=== PATIENT | female | born 1980 ===

== ENCOUNTER 2023-05-17 12:15 | Outpatient (CLI) | payer OTHER, SELFPAY | END 2023-05-17 12:16 | disposition home or self-care (01) | PROVIDERS: Visit Provider Obstetrics & Gynecology | DX: Z13.29 Encounter for screening for other suspected endocrine disorder (principal); Z13.220 Encounter for screening for lipoid disorders | CPT/HCPCS: 80061; 84443 ==

== ENCOUNTER 2023-12-04 08:52 | Outpatient (CLI) | payer OTHER, SELFPAY ==
--- NOTE | 2023-12-04 10:08 | W.ANESCHARGE ---
Anesthesia Charges Start Date/Time Anesthesia Start Date: 12/04/23 Anesthesia Start Time: 09:56 Stop Date/Time Anesthesia Stop Date: 12/04/23 Anesthesia Stop Time: 10:22
--- NOTE | 2023-12-04 10:25 | W.ANESCHARGE ---
Anesthesia Charges Start Date/Time Anesthesia Start Date: 12/04/23 Anesthesia Start Time: 09:56 Stop Date/Time Anesthesia Stop Date: 12/04/23 Anesthesia Stop Time: 10:22
== END 2023-12-04 08:53 | disposition home or self-care (01) ==
LOC: OP CLINIC 08:53
PROVIDERS: Visit Provider Surgery
DX: Z12.11 Encounter for screening for malignant neoplasm of colon (principal)
CPT/HCPCS: 00811; 00812; 45378; J2704

== ENCOUNTER 2024-09-18 08:29 | Outpatient (CLI) | payer OTHER, SELFPAY | END 2024-09-18 08:30 | disposition home or self-care (01) | LOC: FRMREF 08:30 | PROVIDERS: Visit Provider Obstetrics & Gynecology | DX: Z13.6 Encounter for screening for cardiovascular disorders (principal) | CPT/HCPCS: 80061 ==

== ENCOUNTER 2024-12-21 16:26 | Emergency (ER) | payer OTHER, SELFPAY ==
--- OUTSIDE RECORDS SUMMARY | 2024-12-21 16:30 | XMS_ITS | Encounter Summary ---
Author Organization [facility] Address [address] [place] [address] Care Team Providers Care Pattern Developer Name Role Phone Stacie Villareal MD Primary Care Provider Shanon Gomez APRN MANAGER SPRING Unavailable + Stevan Horn PA-C Unavailable + Stevan Horn PA-C Unavailable + Shanon Gomez APRN MANAGER SPRING Unavailable + Stevan Horn PA-C Unavailable + Mariajose Jenkins DIMENSIONAL ENGINEER MANAGER SPRING Unavailable [phone] Shanon Gomez DIMENSIONAL ENGINEER MANAGER SPRING Unavailable +[phone] Encounter Details Date Type Department Care Team (Late st Contact Info) Description 01/28/2016 [facility] Medical Advice [place] [address] [place] [address] Sabina Seymour MA Social History Tobacco Use Types Packs/Day Years Used Date Smoking Tobacco: Never Alcohol Use Standard Drinks/Week Comments Yes 0 (1 standard drink = 0.6 oz pur e alcohol) Occasionally Comments No Sex and Gender Information Value Date Recorded Sex Assigned at Not on file Legal Sex Female 4:02 AM MONEY LAUNDERING INVESTIGATOR Gender Identity Not on file Sexual Orientation Not on file 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 Not on file Not on file Not on file Not on file Not on file Not on file documented as of this encounter Plan of Treatment Not on file documented as of this encounter Visit Diagnoses Not on filedocumented in this encounter Care Teams Pattern Developer Relationship Specialty Start Date End Date Stacie Villareal MD PCP - General Family Practice 12/28/10 09/03/24 Shanon Gomez APRN MANAGER SPRING [address] [place] [address] PCP - Assigned PCP 07/30/17 02/17/18 Stevan Horn PA-C [address] [place] [address] PCP - Assigned PCP 02/18/18 05/01/18 Stevan Horn PA-C [address] [place] [address] Assigned PCP 02/18/18 05/12/18 Shanon Gomez APRN MANAGER SPRING [address] [place] [address] Assigned PCP 05/13/18 12/15/18 Stevan Horn PA-C [address] [place] [address] Assigned PCP 12/16/18 10/10/20 Mariajose Jenkins APRN MANAGER SPRING [address] [place] [address] Assigned OBGYN Provider 06/07/2012/10 Shanon Gomez APRN MANAGER [place] [address] [place] [address] Assigned PCP 10/11/20 11/19/23 documented as of this encounter
--- OUTSIDE RECORDS SUMMARY | 2024-12-21 16:30 | XMS_ITS | Encounter Summary ---
Author Organization [facility] Address [address] [place] [address] Care Team Providers Care Washroom Attendant Name Role Phone Stacie Villareal MD Primary Care Provider Shanon Gomez APRN FRONT MAKER Unavailable + [phone] Stevan Horn PA-C Unavailable + Stevan Horn PA-C Unavailable + Shanon Gomez DISTRIBUTOR OF DIRECTORIES FRONT MAKER Unavailable + Benjie Hornis PA-C Unavailable + Mariajose Jenkins DISTRIBUTOR OF DIRECTORIES FRONT MAKER Unavailable [phone] Shanon Gomez DISTRIBUTOR OF DIRECTORIES FRONT MAKER Unavailable + [phone] Encounter Details Date Type Department Care Team (Late st Contact Info) Description 06/14/2013 [facility] Medical Advice [address] [address] Dar Devi MD NO INFO AVAILABLE 09/20/22 Social History Tobacco Use Types Packs/Day Years Used Date Smoking Tobacco: Never Alcohol Use Standard Drinks/Week Comments Yes 0 (1 standard drink = 0.6 oz pur e alcohol) couple drinks a week Comments Yes Sex and Gender Information Value Date Recorded Sex Assigned at Not on file Legal Sex Female 4:02 AM DIRECTOR COLLEGE Gender Identity Not on file Sexual Orientation Not on file 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 Jade Brown RN * Telephone Encounter - Jade Brown RN - 06/17/2013 7:28 PM CDT Left message to call back at cell number. Jade Brown RN documented in this encounter Plan of Treatment Not on file documented as of this encounter Visit Diagnoses Not on filedocumented in this encounter Care Teams Washroom Attendant Relationship Specialty Start Date End Date Stacie Villareal MD PCP - General Family Practice 12/28/10 09/03/24 Shanon Gomez APRN FRONT [place]KER [address] [place] [address] PCP - Assigned PCP 07/30/17 02/17/18 Stevan Horn PA-C [address] [place] [address] PCP - Assigned PCP 02/18/18 05/01/18 Stevan Horn PA-C [address] [place] [address] Assigned PCP 02/18/18 05/12/18 Shanon Gomez APRN FRONT MAKER [address] [place] [address] Assigned PCP 05/13/18 12/15/18 Stevan Horn PA-C [address] [place] [address] Assigned PCP 12/16/18 10/10/20 Mariajose Jenkins APRN FRONT MAKER [address] [facility] [place] [address] Assigned OBGYN Provider 06/07/2012/10 Shanon Gomez APRN FRONT MAKER [address] [place] [address] Assigned PCP 10/11/20 11/19/23 documented as of this encounter
--- OUTSIDE RECORDS SUMMARY | 2024-12-21 16:30 | XMS_ITS | Encounter Summary ---
Author Organization [facility] Address [address] [place] [address] Care Team Providers Care Surveillance Inspector Name Role Phone Dar Devi MD Primary Care Provider Stacie Gallagher MD Primary Care Provider + Shanon Gomez HYDRO ELECTRIC 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 FLIGHT READINESS TECHNICIAN Unavailable + Stevan Horn PA-C Unavailable + Stevan Horn PA-C Unavailable + Shanon Gomez HYDRO ELECTRIC 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 FLIGHT READINESS TECHNICIAN Unavailable + Stevan Horn PA-C Unavailable + Mariajose Jenkins HYDRO ELECTRIC 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 FLIGHT READINESS TECHNICIAN Unavailable [phone] Shanon Gomez HYDRO ELECTRIC 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 FLIGHT READINESS TECHNICIAN Unavailable + Encounter Details Date Type Department Care Team (Late st Contact Info) Description 03/28/2007 [facility] Medical Advice Initial Department Jammie Scott Social History Tobacco Use Types Packs/Day Years Used Date Smoking Tobacco: Never Alcohol Use Standard Drinks/Week Comments Yes 0 (1 standard drink = 0.6 oz pure alcohol) 3-5 per week while not Comments No Sex and Gender Information Value Date Recorded Sex Assigned at Not on file Legal Sex Female 4:02 AM POWER 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 Gender Identity Not on file Sexual Orientation Not on file 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 Not on file Not on file documented as of this encounter Plan of Treatment Not on file documented as of this encounter Visit Diagnoses Not on filedocumented in this encounter Care Teams Surveillance Inspector Relationship Specialty Start Date End Date Dar Devi MD PCP - General 04/10/03 12/27/10 Stacie Villareal MD PCP - General Family Practice 12/28/10 09/03/24 Shanon Gomez APRN FLIGHT READINESS TECHNICIAN [address] [place] [address] PCP - Assigned PCP 07/30/17 02/17/18 Stevan Horn PA-C [address] [place] [address] PCP - Assigned PCP 02/18/18 05/01/18 Stevan Horn PA-C [address] [place] [address] Assigned PCP 02/18/18 05/12/18 Shanon Gomez APRN FLIGHT READINESS TECHNICIAN [address] [place] [address] Assigned PCP 05/13/18 12/15/18 Stevan Horn PA-C [address] [place] [address] Assigned PCP 12/16/18 10/10/20 Mariajose Jenkins APRN FLIGHT READINESS TECHNICIAN [address] [place] [address] Assigned OBGYN Provider 06/07/2012/10 Shanon Gomez APRN FLIGHT READINESS TECHNICIAN [address] [place] [address] Assigned PCP 10/11/20 11/19/23 documented as of this encounter
--- OUTSIDE RECORDS SUMMARY | 2024-12-21 16:30 | XMS_ITS | Encounter Summary ---
Author Organization [facility] Address [address] [place] [address] Care Team Providers Care Transitional Care Liaison Name Role Phone Dar Devi MD Primary Care Provider Stacie Gallagher MD Primary Care Provider Shanon Gomez MANAGER ADMINISTRATIVE SERVICES MANAGER THERAPY Unavailable + Stevan Horn PA-C Unavailable + Stevan Horn PA-C Unavailable + Shanon Gomez MANAGER ADMINISTRATIVE SERVICES MANAGER THERAPY Unavailable + Stevan Horn PA-C Unavailable + Mariajose Jenkins MANAGER ADMINISTRATIVE SERVICES MANAGER THERAPY Unavailable [phone] Shanon Gomez MANAGER ADMINISTRATIVE SERVICES MANAGER THERAPY Unavailable +[phone] Encounter Details Date Type Department Care Team (Late st Contact Info) Description 04/19/2008 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 on file Not on file Not on file Not on file Not on file Not on file documented as of this encounter Plan of Treatment Not on file documented as of this encounter Visit Diagnoses Diagnosis OB DELIVERY RECORD- Primary documented in this encounter Care Teams Transitional Care Liaison Relationship Specialty Start Date End Date Dar Devi MD PCP - General 04/10/03 12/27/10 Stacie Villareal MD PCP - General Family Practice 12/28/10 09/03/24 Shanon Gomez APRN MANAGER THERAPY [address] [place], [place] [id number] PCP - Assigned PCP 07/30/17 02/17/18 Stevan Horn PA-C [address] [place], [place] [id number] PCP - Assigned PCP 02/18/18 05/01/18 Stevan Horn PA-C [address] [place], [place] [address] Assigned PCP 02/18/18 05/12/18 Shanon Gomez APRN MANAGER THERAPY [address] [place] [address] Assigned PCP 05/13/18 12/15/18 Stevan Horn PA-C [address] [place] [address] Assigned PCP 12/16/18 10/10/20 Mariajose Jenkins APRN MANAGER THERAPY [address] [place] [address] Assigned OBGYN Provider 06/07/2012/10 Shanon Gomez APRN MANAGER [place]APY [address] [place] [address] Assigned PCP 10/11/20 11/19/23 documented as of this encounter
--- OUTSIDE RECORDS SUMMARY | 2024-12-21 16:30 | XMS_ITS | Encounter Summary ---
Author Organization [facility] Address [address] [place] [address] Care Team Providers Care Water Purifier Name Role Phone Dar eDvi MD Primary Care Provider Stacie Gallagher MD Primary Care Provider Shanon Gomez HOOP MAKER HELPER MACHINE FIELD LABORATORY OPERATOR Unavailable + Stevan Horn PA-C Unavailable + Stevan Horn PA-C Unavailable + Shanon Gomez HOOP MAKER HELPER MACHINE FIELD LABORATORY OPERATOR Unavailable + Stevan Horn PA-C Unavailable + Mariajose Jenkins HOOP MAKER HELPER MACHINE FIELD LABORATORY OPERATOR Unavailable [phone] Shanon Gomez HOOP MAKER HELPER MACHINE FIELD LABORATORY OPERATOR Unavailable +[phone] Encounter Details Date Type Department Care Team (Late st Contact Info) Description 01/14/2009 [facility] [address] [address] Dar Devi MD NO INFO AVAILABLE 09/20/22 Hypothyroidism (Primary Dx); Contraception Social History Tobacco Use Types Packs/Day Years Used Date Smoking Tobacco: Never Alcohol Use Standard Drinks/Week Comments No 0 (1 standard drink = 0.6 oz pur e alcohol) none since Comments No Sex and Gender Information Value Date Recorded Sex Assigned at Not on file Legal Sex Female 4:02 AM LAN ENGINEER Gender Identity Not on file Sexual Orientation Not on file 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 Steve Avina RN ENGINEER documented in this encounter Plan of Treatment Not on file documented as of this encounter Visit Diagnoses Diagnosis Hypothyroidism- Primary Unspecified hypothyroidism Contraception Unspecified contraceptive management documented in this encounter Care Teams Water Purifier Relationship Specialty Start Date End Date Dar Devi MD PCP - General 04/10/03 12/27/10 Stacie Villareal MD PCP - General Family Practice 12/28/10 09/03/24 Shanon Gomez APRN FIELD LABORATORY OPERATOR [address] [place] [id number] PCP - Assigned PCP 07/30/17 02/17/18 Stevan Horn PA-C [address] [place] [address] PCP - Assigned PCP 02/18/18 05/01/18 Stevan Horn PA-C [address] [place] [address] Assigned PCP 02/18/18 05/12/18 Shanon Gomez APRN FIELD LABORATORY OPERATOR [address] [place] [address] Assigned PCP 05/13/18 12/15/18 Stevan Horn PA-C [address] [place] [address] Assigned PCP 12/16/18 10/10/20 Mariajose Jenkins HOOP MAKER HELPER MACHINE FIELD LABORATORY OPERATOR [address] [place] [address] Assigned OBGYN Provider 06/07/2012/10 Shanon Gomez APRN FIELD LABORATORY OPERATOR [address] [place] [address] Assigned PCP 10/11/20 11/19/23 documented as of this encounter
--- OUTSIDE RECORDS SUMMARY | 2024-12-21 16:30 | XMS_ITS | Clinical Summary ---
[facility] Organization [facility] Address [address] [place] [address] Care Team Providers Care Baseball Sewer Hand Name Role Phone Found, No Pcp MD Primary Care Provider Unavailab le Source Comments You are receiving this document as you are listed as the primary care provider,follow-up provider, or the patient has been referred to you for consultation.This is in compliance with the Medicare and[facility] EHR Incentive Program,which states Providers who transition their patient to another setting of careor provider of care or refers their patient to another provider of care shouldprovide summary care record for each transition of care or referral. Formerly [facility] Allergies No known active allergies Medications desogestrel-eth inyl estradiol (ORTHO-CEPT, 28,) 0.15-30 MG-MCG tablet Take 1 tablet by mouth daily (every 24 hours). 84 3 04/15/2003 Active estradiol (VIVELLEDOT) 0.1 MG/24HR biweekly patch Apply 1 Patch to skin two times a week. 02/02/2024 Active progesterone (PROMETRIUM) 200 MG capsule Take 1 Capsule (200 mg) by mouth daily at bedtime. 02/08/2024 Active Social History Tobacco Use Types Packs/Day Years Used Date Smoking Tobacco: Never Smokeless Tobacco: Never Tobacco Cessation:Counseling Given: Not Answered Comments No Sex and Gender Information Value Date Recorded Sex Assigned at Not on file Legal Sex Female 8:21 PM CDT Gender Identity Not on file Sexual Orientation Not on file Last Filed Vital Signs Vital Sign Reading Time Taken Comments Blood Pressure 131/73 03/31/2024 3:51 PM TRUSS PULLER HELPER Pulse 74 03/31/2024 3:51 PM TRUSS PULLER HELPER Temperature 37.6 C (99.6 F) 03/31/2024 3:51 PM TRUSS PULLER HELPER Respiratory Rate 18 03/31/2024 3:51 PM TRUSS PULLER HELPER Oxygen Saturation 99% 03/31/2024 3:51 PM TRUSS PULLER HELPER Inhaled Oxygen Concentration - - Weight - - Height - - Body Mass Index - - Plan of Treatment Health Maintenance Due Date Last Done Comments Cervical Cancer Screening Due 1978 Colon Cancer Screening Plan Due 1978 Hep C Screening (Preventive Services) 1978 Mammogram 1978 HIV Screening (Preventive Services) 1994 Adult Preventive Visit 01/02/1996 HepB Vaccine (1) 1997 Cholesterol 2023 DTaP/Tdap/Td Vaccine (2 - Tdap) 07/05/2023 07/04/2013 COVID-19 Vaccine (2 - season) 2024 05/04/2020 Influenza Vaccine (#1) 2024 2, 11/13/2018, 12/10/2016, Additional history exists Zoster/Shingles Vaccine (1 of 2) 01/02/2028 HepA Vaccine Aged Out No longer eligi ble based on patient's age to complete this topic Hib Vaccine Aged Out No longer eligi ble based on patient's age to complete this topic IPV (Polio) Vaccine Aged Out No longe r eligible based on patient's age to complete this topic MCV4 Vaccine Aged Out No longer eligi ble based on patient's age to complete this topic Meningococcal B Vaccine Aged Out No l onger eligible based on patient's age to complete this topic Pneumococcal Vaccine Aged Out No long er eligible based on patient's age to complete this topic Insurance SELF INSURED SELF INSURED Care Teams Baseball Sewer Hand Relationship Specialty Start Date End Date Found, No Pcp, [address] [place] [address] PCP - General 03/31/24
--- OUTSIDE RECORDS SUMMARY | 2024-12-21 16:30 | XMS_ITS | Encounter Summary ---
Author Organization [facility] Address [address] [place] [address] Care Team Providers Care Physical Therapy Assistant Instructor Name Role Phone Stacie Villareal MD Primary Care Provider Shanon Gomez APRN LAUNCH STEWARD Unavailable + Stevan Horn PA-C Unavailable + Stevan Horn PA-C Unavailable + Shanon Gomez APRN LAUNCH STEWARD Unavailable + Stevan Horn PA-C Unavailable + Mariajose Jenkins PAPER CORE MACHINE OPERATOR LAUNCH STEWARD Unavailable [phone] Shanon Gomez PAPER CORE MACHINE OPERATOR LAUNCH STEWARD Unavailable +[phone] Encounter Details Date Type Department Care Team (Late st Contact Info) Description 04/02/2012 [facility] [address], [address] [place] [phone] [facility] Social History Tobacco Use Types Packs/Day Years Used Date Smoking Tobacco: Never Alcohol Use Standard Drinks/Week Comments Yes 0 (1 standard drink = 0.6 oz pur e alcohol) couple drinks a week Comments No Sex and Gender Information Value Date Recorded Sex Assigned at Not on file Legal Sex Female 4:02 AM ROOM DESIGNER Gender Identity Not on file Sexual Orientation [...] on filedocumented in this encounter Care Teams Physical Therapy Assistant Instructor Relationship Specialty Start Date End Date Stacie Villareal MD PCP - General Family Practice 12/28/10 09/03/24 hSanon Gomez APRN LAUNCH STEWARD [address] [place] [address] PCP - Assigned PCP 07/30/17 02/17/18 Stevan Horn PA-C [address] [place] [address] PCP - Assigned PCP 02/18/18 05/01/18 Stevan Horn PA-C [address] [place] [address] Assigned PCP 02/18/18 05/12/18 Shanon Gomez APRN LAUNCH STEWARD [address] [place] [address] Assigned PCP 05/13/18 12/15/18 Stevan Horn PA-C [address] [place] [address] Assigned PCP 12/16/18 10/10/20 Mariajose Jenkins APRN LAUNCH STEWARD [address] [place] [address] Assigned OBGYN Provider 06/07/2012/10 Shanon Gomez APRN LAUNCH STEWARD [address] [place] [address] Assigned PCP 10/11/20 11/19/23 documented as of this encounter
--- OUTSIDE RECORDS SUMMARY | 2024-12-21 16:30 | XMS_ITS | Encounter Summary ---
Author Organization [facility] Address [address] [place] [address] Care Team Providers Care It Infrastructure Project Manager Name Role Phone Stacie Villareal MD Primary Care Provider Shanon Gomez APRN ASSISTANT LIBRARIAN Unavailable + Stevan Horn PA-C Unavailable + Stevan Horn PA-C Unavailable + Shanon Gomez PROGRAM RESEARCH SPECIALIST ASSISTANT LIBRARIAN Unavailable + Benjie Hornis PA-C Unavailable + Mariajose Jenkins PROGRAM RESEARCH SPECIALIST ASSISTANT LIBRARIAN Unavailable [phone] Shanon Gomez PROGRAM RESEARCH SPECIALIST ASSISTANT LIBRARIAN Unavailable + [phone] Encounter Details Date Type Department Care Team (Late st Contact Info) Description 12/05/2012 [facility] Medical Advice [address] [address] Dar Devi MD NO INFO AVAILABLE 09/20/22 Social History Tobacco Use Types Packs/Day Years Used Date Smoking Tobacco: Never Alcohol Use Standard Drinks/Week Comments Yes 0 (1 standard drink = 0.6 oz pur e alcohol) couple drinks a week Comments No Sex and Gender Information Value Date Recorded Sex Assigned at Not on file Legal Sex Female 4:02 AM CERTIFIED VEHICLE FIRE INVESTIGATOR Gender Identity Not on file Sexual Orientation Not on file 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 Steve Avina RN documented in this encounter Plan of Treatment Not on file documented as of this encounter Visit Diagnoses Not on filedocumented in this encounter Care Teams It Infrastructure Project Manager Relationship Specialty Start Date End Date Stacie Villareal MD PCP - General Family Practice 12/28/10 09/03/24 Shanon Gomez APRN ASSISTANT LIBRARIAN [address] [place] [place] [phone] PCP - Assigned PCP 07/30/17 02/17/18 Stevan Horn PA-C [address] [place] [address] PCP - Assigned PCP 02/18/18 05/01/18 Stevan Horn PA-C [address] [place] [address] Assigned PCP 02/18/18 05/12/18 Shanon Gomez APRN ASSISTANT LIBRARIAN [address] [place] [address] Assigned PCP 05/13/18 12/15/18 Stevan Horn PA-C [address] [place] [address] Assigned PCP 12/16/18 10/10/20 Mariajose Jenkins APRN ASSISTANT LIBRARIAN [address] [place], [place] [address] Assigned OBGYN Provider 06/07/2012/10 Shanon Gomez APRN ASSISTANT LIBRARIAN [address] [place] [address] Assigned PCP 10/11/20 11/19/23 documented as of this encounter
--- OUTSIDE RECORDS SUMMARY | 2024-12-21 16:30 | XMS_ITS | Clinical Summary ---
Author Organization [facility] Address [address] [place] [address] Care Team Providers Care Cabinet Installer Name Role Phone Unavailable Primary Care Provider Unavailabl e Allergies No known active allergies Medications omeprazole (PRILOSEC) [address] capsuleIndicati ons:Abdominal burning sensation in left upper quadrant TAKE 1 CAPSULE BY MOUTH EVERY DAY 90 capsule 3 06/05/2020 Active Probiotic Product (PROBIOTIC DAILY PO) Active Active Problems Problem Noted Date Diagnosed Date Cervical high risk HPV (human papillomavirus) te st positive 05/11/2017 Overview (07/20/2021): 05/11/17 NIL, +HR HPV, not 16/18. Plan 1 yr co-test 06/28/18 Patient is lost to pap tracking follow-up. 06/05/20 NIL pap, neg HPV. Plan cotest in 1 year 05/18/21 Reminder MyChart 06/21/21 Reminder call - left message 07/20/21 Lost to follow-up for pap tracking GERD (gastroesophageal reflux disease) 1 POD (perioral dermatitis) 09/30/2010 CARDIOVASCULAR SCREENING; LDL GOAL LESS THAN 160 12/27/2009 Resolved Problems Problem Noted Date Diagnosed Date Resolved Date Labor and delivery, indication for care 07/02/2013 02/13/2017 Normal labor and delivery 07/02/2013 Encounter for supervision of other normal 05/13/2013 02/13/2017 Overview (12/29/2014): Diagnosis updated by automated process. Provider to review and confirm. 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 Provider to review and confirm. 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 07/21/2006 07/16/2010 Overview (07/21/2006): Positive group B strep in urine Supervision of normal first 07/17/2006 07/16/2010 Irregular menstrual cycle 10/03/2005 Immunizations Immunization Administration Dates Next Due COVID-19 Vaccine (Mila) 05/04/2020 Influenza (IIV3) PF 12/29/2011,01/25/2011,2009 Influenza Vaccine >6 months,quad, PF 11/13/2018, 12/19/2013,02/26/2013 TDAP Vaccine (Adacel) 07/04/2013 Family History Medical History Relation Comments Family History Negative Brother Alcohol/Drug Father Cancer Maternal Grandmother lung cancer Alcohol/Drug Mother Cancer - colorectal Paternal Grandfather d Cancer Paternal Grandmother lung cancer and heart disease Family History Negative Sister 1 Relation Status Comments Brother Alive Father Alive Maternal Grandfather Alive Maternal Grandmother Mother Alive Paternal Grandfather Paternal Grandmother Sister 1 Alive Sister 2 Alive Son 1 Alive Son 2 Alive Social History Tobacco Use Types Packs/Day Years Used Date Smoking Tobacco: Never Smokeless Tobacco: Never Alcohol Use Standard Drinks/Week Comments Yes 0 (1 standard drink = 0.6 oz pur e alcohol) Occasionally PHQ-2 Answer Date Recorded PHQ-2 Score 1 06/05/2020 Adolescent Education Answer Date Record ed Getting School Help Needed Not on file 12/04 Comments No Sex and Gender Information Value Date Recorded Sex Assigned at Not on file Legal Sex Female 4:02 AM RN ENDOCRINOLOGY Gender Identity Not on file Sexual Orientation Not on file 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 Not on file Not on file Not on file Not on file Not on file Not on file Last Filed Vital Signs Vital Sign Reading Time Taken Comments Blood Pressure 108/68 10/05/2020 10:07 AM CDT Pulse 59 10/05/2020 10:07 AM CDT Temperature 37.2 C (98.9 F) 10/05/2020 10:07 AM CDT Respiratory Rate 20 10/05/2020 10:07 AM CDT Oxygen Saturation 98% 10/05/2020 10:07 AM CDT Inhaled Oxygen Concentration - - Weight 77.1 kg (170 lb) 10/05/2020 10:07 AM CDT Height 166.4 cm (5' 5.5) 06/05/2020 1:58 PM CDT Body Mass Index 27.86 06/05/2020 1:58 PM CDT Plan of Treatment Not on file [facility]
--- OUTSIDE RECORDS SUMMARY | 2024-12-21 16:30 | XMS_ITS | Encounter Summary ---
Author Organization [facility] Address [address] [place] [address] Care Team Providers Care Primary Grade Teacher Name Role Phone Dar Devi MD Primary Care Provider Stacie Gallagher MD Primary Care Provider + Shanon Gomez SCORE CALLER PLY SPLICER Unavailable + Stevan Horn PA-C Unavailable + Stevan Horn PA-C Unavailable + Shanon Gomez SCORE CALLER PLY SPLICER Unavailable + Stevan Horn PA-C Unavailable + Mariajose Jenkins SCORE CALLER PLY SPLICER Unavailable [phone] Shanon Gomez SCORE CALLER PLY SPLICER Unavailable + Encounter Details Date Type Department Care Team (Late st Contact Info) Description 08/11/2010 [facility] [address] [place] [phone] [facility] Social History Tobacco Use Types Packs/Day Years Used Date Smoking Tobacco: Never Alcohol Use Standard Drinks/Week Comments No 0 (1 standard drink = 0.6 oz pur e alcohol) none since Comments No Sex and Gender Information Value Date Recorded Sex Assigned at Not on file Legal Sex Female 4:02 AM BROOM BUILDER Gender Identity Not on file Sexual Orientation [...] on filedocumented in this encounter Care Teams Primary Grade Teacher Relationship Specialty Start Date End Date Dar Devi MD PCP - General 04/10/03 12/27/10 Stacie Villareal MD PCP - General Family Practice 12/28/10 09/03/24 Shanon Gomez APRN PLY SPLICER [address] [place], [place] [id number] PCP - Assigned PCP 07/30/17 02/17/18 Stevan Horn PA-C [address] [place], [place] [phone] PCP - Assigned PCP 02/18/18 05/01/18 Stevan Horn PA-C [address]71 [place], [place] [phone] Assigned PCP 02/18/18 05/12/18 Shanon Gomez APRN PLY SPLICER [address] [place], [place] [phone] Assigned PCP 05/13/18 12/15/18 Stevan Horn PA-C [address] [place], [place] [phone] Assigned PCP 12/16/18 10/10/20 aMriajose Jenkins APRN PLY SPLICER [address] [place] [address] Assigned OBGYN Provider 06/07/2012/10 Shanon Gomez APRN [place]Y [place]ICER [address] [place] [address] Assigned PCP 10/11/20 11/19/23 documented as of this encounter
--- OUTSIDE RECORDS SUMMARY | 2024-12-21 16:30 | XMS_ITS | Encounter Summary ---
Author Organization [facility] Address [address] [place] [address] Care Team Providers Care Cable Armorer Name Role Phone Dar Devi MD Primary Care Provider Stacie Gallagher MD Primary Care Provider Shanon Gomez TELETYPESETTER DIGITAL ANALYST Unavailable + Stevan Horn PA-C Unavailable + Stevan Horn PA-C Unavailable + Shanon Gomez TELETYPESETTER DIGITAL ANALYST Unavailable + Stevan Horn PA-C Unavailable + Mariajose Jenkins TELETYPESETTER DIGITAL ANALYST Unavailable [phone] Shanon Gomez TELETYPESETTER DIGITAL ANALYST Unavailable [phone] Encounter Details Date Type Department Care Team (Late st Contact Info) Description 05/15/2008 [facility] [address] [address] Dar Devi MD NO INFO AVAILABLE 09/20/22 Social History Tobacco Use Types Packs/Day Years Used Date Smoking Tobacco: Never Alcohol Use Standard Drinks/Week Comments No 0 (1 standard drink = 0.6 oz pur e alcohol) none since Comments Yes Sex and Gender Information Value Date Recorded Sex Assigned at Not on file Legal Sex Female 4:02 AM CENTER CUSTOMER SERVICE ASSOCIATE Gender Identity Not on file Sexual Orientation [...] on filedocumented in this encounter Care Teams Cable Armorer Relationship Specialty Start Date End Date Dar Devi MD PCP - General 04/10/03 12/27/10 Stacie Villareal MD PCP - General Family Practice 12/28/10 09/03/24 Shanon Gomez APRN DIGITAL ANALYST [address] [place], [place] [phone] PCP - Assigned PCP 07/30/17 02/17/18 Stevan Horn PA-C [address]857 [place], [place] [phone] PCP - Assigned PCP 02/18/18 05/01/18 Stevan Horn PA-C [address] [place], [place] [phone] Assigned PCP 02/18/18 05/12/18 Shanon Gomez APRN DIGITAL ANALYST [address] [place], [place] [phone] Assigned PCP 05/13/18 12/15/18 Stevan Horn PA-C [address] [place] [phone] Assigned PCP 12/16/18 10/10/20 Mariajose Jenkins APRN DIGITAL ANALYST [address] [place] [address] Assigned OBGYN Provider 06/07/2012/10 Shanon Gomez APRN DIGITAL ANALYST [address] [place] [address] Assigned PCP 10/11/20 11/19/23 documented as of this encounter
--- OUTSIDE RECORDS SUMMARY | 2024-12-21 16:30 | XMS_ITS | Encounter Summary ---
Author Organization [facility] Address [address] [place] [address] Care Team Providers Care Editor Sound Name Role Phone Dar Devi MD Primary Care Provider Stacie Gallagher MD Primary Care Provider Shanon Gomez SUPERVISOR WET END TUBE DRAWER Unavailable + Stevan Horn PA-C Unavailable + Stevan Horn PA-C Unavailable + Shanon Gomez SUPERVISOR WET END TUBE DRAWER Unavailable + Stevan Horn PA-C Unavailable + Mariajose Jenkins SUPERVISOR WET END TUBE DRAWER Unavailable [phone] Shanon Gomez SUPERVISOR WET END TUBE DRAWER Unavailable + Reason for Visit * Reason Onset Date Comments MyChart Communication 04/20/2009 Encounter Details Date Type Department Care Team (Late st Contact Info) Description 04/20/2009 [facility] [place] Medical Advice [facility] [address] [place] [address] Dar Devi MD NO INFO AVAILABLE 09/20/22 MyChart Communication Social History Tobacco Use Types Packs/Day Years Used Date Smoking Tobacco: Never Alcohol Use Standard Drinks/Week Comments No 0 (1 standard drink = 0.6 oz pur e alcohol) none since Comments No Sex and Gender Information Value Date Recorded Sex Assigned at Not on file Legal Sex Female 4:02 AM ASTROCHEMIST Gender Identity Not on file Sexual Orientation Not on file 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 Not on file Not on file Not on file Not on file Not on file Not on file documented as of this encounter Miscellaneous Notes * Telephone Encounter - Dar Devi - 04/23/2009 6:00 PM CST See Master The Gaph[employer] message OCHEMIST documented in this encounter Plan of Treatment Not on file documented as of this encounter Visit Diagnoses Not on filedocumented in this encounter Care Teams Editor Sound Relationship Specialty Start Date End Date Dar Devi MD PCP - General 04/10/03 12/27/10 Stacie Villareal MD PCP - General Family Practice 12/28/10 09/03/24 Shanon Gomez APRN TUBE DRAWER [address] [place], [place] [phone] PCP - Assigned PCP 07/30/17 02/17/18 Stevan Horn PA-C [address] [place], [place] [phone] PCP - Assigned PCP 02/18/18 05/01/18 Stevan Horn PA-C 78755 [place], [place] [phone] Assigned PCP 02/18/18 05/12/18 Shanon Gomez APRN TUBE DRAWER [address] [place], [place] [phone] Assigned PCP 05/13/18 12/15/18 Stevan Horn PA-C [address] [place] [address] Assigned PCP 12/16/18 10/10/20 Mariajose Jenkins APRN TUBE DRAWER [address] [place] [address] [place] [address] Assigned OBGYN Provider 06/07/2012/10 Shanon Gomez APRN TUBE DRAWER [address] [place] [address] Assigned PCP 10/11/20 11/19/23 documented as of this encounter
--- OUTSIDE RECORDS SUMMARY | 2024-12-21 16:30 | XMS_ITS | Encounter Summary ---
Author Organization [facility] Address [address] [place] [address] Care Team Providers Care Floral Design Teacher Name Role Phone Dar Devi MD Primary Care Provider Stacie Gallagher MD Primary Care Provider + Shanon Gomez BUSINESS SYSTEM CONSULTANT HOROLOGIST APPRENTICE Unavailable + Stevan Horn PA-C Unavailable + Stevan Horn PA-C Unavailable + Shanon Gomez BUSINESS SYSTEM CONSULTANT HOROLOGIST APPRENTICE Unavailable + Stevan Horn PA-C Unavailable + Mariajose Jenkins BUSINESS SYSTEM CONSULTANT HOROLOGIST APPRENTICE Unavailable [phone] Shanon Gomez BUSINESS SYSTEM CONSULTANT HOROLOGIST APPRENTICE Unavailable + Encounter Details Date Type Department Care Team (Late st Contact Info) Description 02/08/2007 [facility] [address] [place] [phone] Stevie Ryder MD NO INFO AVAILABLE 02/17/2022 DELIVERY PATHWAY (Primary Dx) Social History Tobacco Use Types Packs/Day Years Used Date Smoking Tobacco: Never Smokeless Tobacco: Never Alcohol Use Standard Drinks/Week Comments Yes 0 (1 standard drink = 0.6 oz pur e alcohol) Occasionally Comments No Sex and Gender Information Value Date Recorded Sex Assigned at Not on file Legal Sex Female 4:02 AM DEPARTMENT CLINICIAN Gender Identity Not on file Sexual Orientation Not on file 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 Not on file Not on file Not on file Not on file Not on file Not on file documented as of this encounter Plan of Treatment Not on file documented as of this encounter Visit Diagnoses Diagnosis DELIVERY PATHWAY- Primary documented in this encounter Care Teams Floral Design Teacher Relationship Specialty Start Date End Date Dar Devi MD PCP - General 04/10/03 12/27/10 Stacie Villareal MD PCP - General Family Practice 12/28/10 09/03/24 Shanon Gomez APRN HOROLOGIST APPRENTICE [address] [place], [place] [phone] PCP - Assigned PCP 07/30/17 02/17/18 Stevan Horn PA-C [address] [place] [address] PCP - Assigned PCP 02/18/18 05/01/18 Stevan Horn PA-C [address] [place] [address] Assigned PCP 02/18/18 05/12/18 Shanon Gomez APRN HOROLOGIST APPRENTICE [address] [place] [address] Assigned PCP 05/13/18 12/15/18 Stevan Horn PA-C [address] [place] [address] Assigned PCP 12/16/18 10/10/20 Mariajose Jenkins APRN HOROLOGIST APPRENTICE [address] [place] [address] Assigned OBGYN Provider 06/07/2012/10 Shanon Gomez APRN HOROLOGIST APPRENTICE [address] [place] [address] Assigned PCP 10/11/20 11/19/23 documented as of this encounter
--- OUTSIDE RECORDS SUMMARY | 2024-12-21 16:30 | XMS_ITS | Encounter Summary ---
Author Organization [facility] Address [address] [place] [address]. [place] [address] Care Team Providers Care Sales Secretary Name Role Phone Stacie Villareal MD Primary Care Provider Shanon Gomez APRN SKILL LABOR Unavailable Stevan Horn PA-C Unavailable [phone] Stevan Horn PA-C Unavailable [phone] Shanon Gomez APRN SKILL LABOR Unavailable [phone] Stevan Horn PA-C Unavailable [phone] Mariajose Jenkins PRODUCTION AIDE SKILL LABOR Unavailable [phone] Shanon Gomez APRN SKILL LABOR Unavailable [phone] Reason for Visit * Reason Onset Date Comments Refill Request 10/17/2011 Omeprazole Encounter Details Date Type Department Care Team (Late st Contact Info) Description 10/17/2011 MyC Medical Advice [facility] [address] [place] [address] [place] [address] [place] [address] Refill Request (Omeprazole ) Social History Tobacco Use Types Packs/Day Years Used Date Smoking Tobacco: Never Alcohol Use Standard Drinks/Week Comments Yes 0 (1 standard drink = 0.6 oz pur e alcohol) couple drinks a week Comments No Sex and Gender Information Value Date Recorded Sex Assigned at Not on file Legal Sex Female 4:02 AM DOUBLE NEEDLE OPERATOR LOCKSTITCH Gender Identity Not on file Sexual Orientation Not on file 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 Not on file Not on file Not on file Not on file Not on file Not on file documented as of this encounter Miscellaneous Notes * Telephone Encounter - Diana Salvador - 10/17/2011 11:59 AM CDT GI MEDICATION Last Office Visit R/T Diagnosis: 12/28/2010 IRRITABLE BOWEL SYNDROME: Bentyl, Lovsin CARAFATE H2 BLOCKERS: Axid, Pepcid, Tagamet, Zantac PROTON PUMP INHIBITORS: Aciphex, Nexium, Prevacid, Prilosec, Protonix, Dexilant May substitute via therapeutic comparison chart: PROTON PUMP INHIBITORS (PPIs) CONSTIPATION: Colace, Dulcolax/Fleet, Senocot, Miralax HEMORRHOIDS: Ausol OV 12 mths Max refills: 12 mths Unable to fill. RX was discontinued. Will route to provider. Diana Salvador RN documented in this encounter Plan of Treatment Not on file documented as of this encounter Visit Diagnoses Diagnosis GERD (gastroesophageal reflux disease)- Primary Esophageal reflux documented in this encounter Care Teams Sales Secretary Relationship Specialty Start Date End Date Stacie Villareal MD PCP - General Family Practice 12/28/10 09/03/24 Shanon Gomez APRN SKILL LABOR [address] [place] [address] PCP - Assigned PCP 07/30/17 02/17/18 Stevan Horn [place] [address] [place] [address] PCP - Assigned PCP 02/18/18 05/01/18 Stevan Horn PA-C [address] [place] [address] Assigned PCP 02/18/18 05/12/18 Shanon Gomez APRN SKILL LABOR [address] [place] [address] Assigned PCP 05/13/18 12/15/18 Stevan Horn PA-C [address] [place] [address] Assigned PCP 12/16/18 10/10/20 Mariajose Jenkins APRN SKILL LABOR [address] [place] [address] Assigned OBGYN Provider 06/07/2012/10 Shanon Gomez APRN SKILL LABOR [address] [place] [address] Assigned PCP 10/11/20 11/19/23 documented as of this encounter
--- OUTSIDE RECORDS SUMMARY | 2024-12-21 16:30 | XMS_ITS | Encounter Summary ---
Author Organization [facility] Address [address] [place] [address]. [place] [address] Care Team Providers Care Director Of Marketing Analytics Name Role Phone Stacie Villareal MD Primary Care Provider Stevan Horn PA-C Unavailable [phone] Mariajose Jenkins APRN TELEPHONE SUPERVISOR Unavailable [phone] Shanon Gomez APRN TELEPHONE SUPERVISOR Unavailable [phone] Reason for Visit * Reason Comments Medication Refill Encounter Details Date Type Department Care Team (Late st Contact Info) Description 06/19/[address], [address] [place] [address] Stevan Horn PA-C [address] [place] [address] Medication Refill Social History Tobacco Use Types Packs/Day Years Used Date Smoking Tobacco: Never Smokeless Tobacco: Never Alcohol Use Standard Drinks/Week Comments Yes 0 (1 standard drink = 0.6 oz pur e alcohol) Occasionally PHQ-2 Answer Date Recorded PHQ-2 Score 0 03/06/2018 Comments No Sex and Gender Information Value Date Recorded Sex Assigned at Not on file Legal Sex Female 4:02 AM CHILLING HOOD OPERATOR Gender Identity Not on file Sexual Orientation Not on file 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 documented in this encounter Plan of Treatment Not on file documented as of this encounter Visit Diagnoses Diagnosis Other chest pain documented in this encounter Care Teams Director Of Marketing Analytics Relationship Specialty Start Date End Date Stacie Villareal MD PCP - General Family Practice 12/28/10 09/03/24 Stevan Horn [place] [address] [place] [address] Assigned PCP 12/16/18 10/10/20 Mariajose Jenkins APRN TELEPHONE SUPERVISOR [address] [place] [address] [place] [address] Assigned OBGYN Provider 06/07/2012/10 Shanon Gomez APRN TELEPHONE SUPERVISOR [address] [place] [address] Assigned PCP 10/11/20 11/19/23 documented as of this encounter
--- OUTSIDE RECORDS SUMMARY | 2024-12-21 16:30 | XMS_ITS | Clinical Summary ---
Author Organization [facility] Address [address] [place] [address] Care Team Providers Care Filtration Operator Name Role Phone [facility] Primary Care Provider Unavailabl e Allergies No known active allergies Medications No known medications Active Problems Problem Noted Date Diagnosed Date Myopia 12/27/2006 Rosacea 10/17/2005 Viral warts, unspecified 09/09/2005 Immunizations Immunization Administration Dates Next Due Influenza, IIV4 11/13/2018 Tdap 07/04/2013 Family History Medical History Relation Name Comments Hypertension Father Hypertension Mother Genetic Other migraines-mom/s ister~Family history of:~~Breast Cancer: No~~Ovarian Cancer: No~~Colon CA: Pat. gpa~~Prostate/Testicular CA: No~~Osteoporosis: No~~Early CAD: No~~DM: No~~Thyroid Dz: No Relation Name Status Comments Father Mother Other Social History Tobacco Use Types Packs/Day Years Used Date Smoking Tobacco: Never Smokeless Tobacco: Never Alcohol Use Standard Drinks/Week Comments Not Asked 0 (1 standard drink = 0.6 oz pur e alcohol) Alcoholic Drinks/day: 1 Social Connections Answer Date Recorded Frequency of Communication with Friends and Fami ly Not on file 03/10/2021 Financial Resource Strain Answer Date R ecorded Difficulty of Paying Living Expenses Not on file 03/10/2021 Difficulty of Paying Living Expenses Not on file 03/10/2021 Comments No Sex and Gender Information Value Date Recorded Sex Assigned at Not on file Legal Sex Female 7:05 AM AUTO DAMAGE TRAINEE Gender Identity Not on file Sexual Orientation Not on file Obstetrics History Last Filed Vital Signs Vital Sign Reading Time Taken Comments Blood Pressure 110/68 03/10/2021 10:34 AM AUTO DAMAGE TRAINEE Pulse 60 03/10/2021 10:34 AM AUTO DAMAGE TRAINEE Temperature 36.6 C (97.8 F) 03/10/2021 10:34 AM AUTO DAMAGE TRAINEE Respiratory Rate 15 03/10/2021 10:34 AM AUTO DAMAGE TRAINEE Oxygen Saturation 97% 03/10/2021 10:34 AM AUTO DAMAGE TRAINEE Inhaled Oxygen Concentration - - Weight 79.8 kg (176 lb) 03/10/2021 10:34 AM AUTO DAMAGE TRAINEE Height 165.1 cm (5' 5) 03/10/2021 10:34 AM AUTO DAMAGE TRAINEE Body Mass Index 29.29 03/10/2021 10:34 AM AUTO DAMAGE TRAINEE Plan of Treatment Health Maintenance Due Date Last Done Comments Depression screening for age 12+ 1990 HIV for age 15-65 1993 Hepatitis C screening for ag e 18-79 01/02/1996 Hepatitis B series for 19+ ( 1 of 3 - 19+ 3-dose series) 1997 BMI (ht and wt on same day) for age 18+ 03/10/2022 03/10/2021 Colonoscopy through age 75 2023 Lipids for age 45-75 2023 Mammogram for age 45-75 2023 Tetanus booster 07/05/2023 07/04/2013 COVID-19 vaccine series ( season) 2024 05/04/2020 Influenza Vaccine (#1) 2024 11/13/2018 Pap test for age 21-65 05/16/2026 4, 05/17/2023 RSV vaccine for adults or (1 - 1-dose 75+ series) 2053 Pneumococcal series for age 6-49 Aged Out No longer eligible b ased on patient's age to complete this topic Procedures Procedure Name Priority Date/Time Associated Diagnosis Comments HPV HIGH RISK Routine 05/17/2023 12:10 PM CDT from Last 3 Months or Most Recently Relevant to Health Maintenance Results * HPV HIGH RISK (05/17/2023 12:10 PM CDT) TYPE 16 Negative Negative 05/19/2023 11:31 AM CDT [facility] TYPE 18 Negative Negative 05/19/2023 11:31 AM CDT [facility] OTHER HIGH RISK TYPES Negative Negative 05/19/2023 11:31 AM CDT [facility] Other (Cervical) 05/17/2023 12:10 PM CDT 05/17/2023 5:39 PM CDT Narrative [facility] - 05/19/2023 11:31 AM CDT HPV types 16, 18, 31, 33, 35, 39, 45, 51, 52, 56, 58, 59, 66 and 68 DNA were undetectable or below the pre-set threshold. Methodology: Krystal Anna 4800 HPV Test us Alejandra You MD MICROBIOLOGY Fi nal Result [facility] [address] [place] [address], from Last 3 Months or Most Recently Relevant to Health Maintenance Insurance [place] [id number] Care Teams Filtration Operator Relationship Specialty Start Date End Date [facility] PCP - General 02/15/12
--- OUTSIDE RECORDS SUMMARY | 2024-12-21 16:30 | XMS_ITS | Encounter Summary ---
Author Organization [facility] Address [address] [place] [address] Care Team Providers Care Record Tester Name Role Phone Stacie Villareal MD Primary Care Provider Shanon Gomez APRN BODY BUILDER APPRENTICE Unavailable + [phone] Stevan Horn PA-C Unavailable + Stevan Horn PA-C Unavailable + Shanon Gomez SECTION WEAVER BODY BUILDER APPRENTICE Unavailable + Benjie Hornis PA-C Unavailable + Mariajose Jenkins SECTION WEAVER BODY BUILDER APPRENTICE Unavailable [phone] Shanon Gomez SECTION WEAVER BODY BUILDER APPRENTICE Unavailable + [phone] Encounter Details Date Type Department Care Team (Late st Contact Info) Description 11/22/2012 MyC Medical Advice [facility] [place] [address] [place] [address] Dar Devi MD NO INFO AVAILABLE 09/20/22 Spotting complicating in first trimester (Primary Dx) Social History Tobacco Use Types Packs/Day Years Used Date Smoking Tobacco: Never Alcohol Use Standard Drinks/Week Comments Yes 0 (1 standard drink = 0.6 oz pur e alcohol) couple drinks a week Comments No Sex and Gender Information Value Date Recorded Sex Assigned at Not on file Legal Sex Female 4:02 AM GANG SUPERVISOR PIPE LINES Gender Identity Not on file Sexual Orientation Not on file 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 My chart message sent to pt. Pt is O positive. Steve Avina RN documented in this encounter Plan of Treatment Not on file documented as of this encounter Visit Diagnoses Diagnosis Spotting complicating in first trimester- Primary Spotting complicating , antepartum condition or complication documented in this encounter Care Teams Record Tester Relationship Specialty Start Date End Date Stacie Villareal MD PCP - General Family Practice 12/28/10 09/03/24 Shanon Gomez APRN BODY BUILDER APPRENTICE [address] [place], [place] [id number] PCP - Assigned PCP 07/30/17 02/17/18 Stevan Horn PA-C [address] [address] [place], [place] [id number] PCP - Assigned PCP 02/18/18 05/01/18 Stevan Horn PA-C [address] [place] [address] Assigned PCP 02/18/18 05/12/18 Shanon Gomez APRN BODY BUILDER APPRENTICE [address] [place] [address] Assigned PCP 05/13/18 12/15/18 Stevan Horn PA-C [address] [place] [address] Assigned PCP 12/16/18 10/10/20 Mariajose Jenkins APRN BODY BUILDER APPRENTICE [address] [place] [address] Assigned OBGYN Provider 06/07/2012/10 Shanon Gomez APRN BODY BUILDER APPRENTICE [address] [place] [address] Assigned PCP 10/11/20 11/19/23 documented as of this encounter
--- OUTSIDE RECORDS SUMMARY | 2024-12-21 16:30 | XMS_ITS | Encounter Summary ---
Author Organization [facility] [facility] Address [address] [place] [address] Care Team Providers Care Wireless Team Member Name Role Phone Dar Devi MD Primary Care Provider Stacie Gallagher MD Primary Care Provider Shanon Gomez CARTON FORMING MACHINE HELPER PORTER USED CAR LOT Unavailable + [phone] Stevan Horn PA-C Unavailable + Stevan Horn PA-C Unavailable + Shanon Gomez CARTON FORMING MACHINE HELPER PORTER USED CAR LOT Unavailable + Stevan Horn PA-C Unavailable + Mariajose Jenkins CARTON FORMING MACHINE HELPER PORTER USED CAR LOT Unavailable [phone] Shanon Gomez CARTON FORMING MACHINE HELPER PORTER USED CAR [employer] Unavailable +[phone] Encounter Details Date Type Department Care Team (Late st Contact Info) Description 04/20/2006 [facility] [place] [address] [address] [place] [facility] Social History Tobacco Use Types Packs/Day Years Used Date Smoking Tobacco: Never Alcohol Use Standard Drinks/Week Comments Yes 0 (1 standard drink = 0.6 oz pur e alcohol) 3-5 per week Comments No Sex and Gender Information Value Date Recorded Sex Assigned at Not on file Legal Sex Female 4:02 AM MANAGER PHYSICAL Gender Identity Not on file Sexual Orientation Not on file 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 Not on file Not on file documented as of this encounter Plan of Treatment Not on file documented as of this encounter Visit Diagnoses Not on filedocumented in this encounter Care Teams Wireless Team Member Relationship Specialty Start Date End Date Dar Devi MD PCP - General 04/10/03 12/27/10 Stacie Villareal MD PCP - General Family Practice 12/28/10 09/03/24 Shanon Gomez APRN PORTER USED [employer] [id number] [place] [address] PCP - Assigned PCP 07/30/17 02/17/18 Stevan Horn PA-C [address] [place] [address] PCP - Assigned PCP 02/18/18 05/01/18 Stevan Horn PA-C [address] [place] [address] Assigned PCP 02/18/18 05/12/18 Shanon Gomez APRN PORTER USED [employer] [address] [place] [address] Assigned PCP 05/13/18 12/15/18 Stevan Horn PA-C [address] [place] [address] Assigned PCP 12/16/18 10/10/20 Mariajose Jenkins APRN PORTER [address] [address] [place] [address] Assigned OBGYN Provider 06/07/2012/10 Shanon Gomez APRN [facility] [address] [place] [address] Assigned PCP 10/11/20 11/19/23 documented as of this encounter
--- OUTSIDE RECORDS SUMMARY | 2024-12-21 16:30 | XMS_ITS | Encounter Summary ---
Author Organization [facility] Address [address] [place] [address]. [place] [address] Care Team Providers Care Sand Drier Name Role Phone Dar Devi MD Primary Care Provider Stacie Gallagher MD Primary Care Provider Shanon Gomez APRN RAW MATERIAL HANDLER Unavailable [phone] Stevan Horn PA-C Unavailable [phone] Stevan Horn PA-C Unavailable [phone] Shanon Gomez PSYCHOLOGIST PRIVATE PRACTICE RAW MATERIAL HANDLER Unavailable [phone] Stevan Horn PA-C Unavailable [phone] Mariajose Jenkins PSYCHOLOGIST PRIVATE PRACTICE RAW MATERIAL HANDLER Unavailable [phone] Shanon Gomez APRN RAW MATERIAL HANDLER Unavailable [phone] Reason for Visit * Reason Onset Date Comments Medication Request 09/29/2010 Rash Encounter Details Date Type Department Care Team (Late st Contact Info) Description 09/29/2010 MyC Medical Advice [address], [address] [place] [address] [place] [address] [place] [address] Medication Request (Rash) Social History Tobacco Use Types Packs/Day Years Used Date Smoking Tobacco: Never Alcohol Use Standard Drinks/Week Comments No 0 (1 standard drink = 0.6 oz pur e alcohol) none since Comments No Sex and Gender Information Value Date Recorded Sex Assigned at Not on file Legal Sex Female 4:02 AM 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 Gender Identity Not on file Sexual Orientation Not on file 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 Not on file Not on file Not on file Not on file Not on file Not on file documented as of this encounter Plan of Treatment Not on file documented as of this encounter Visit Diagnoses Diagnosis POD (perioral dermatitis)- Primary Rosacea documented in this encounter Care Teams Sand Drier Relationship Specialty Start Date End Date Dar Devi MD PCP - General 04/10/03 12/27/10 Stacie Villareal MD PCP - General Family Practice 12/28/10 09/03/24 Shanon Gomez APRN RAW MATERIAL HANDLER [address] [place] [id number] PCP - Assigned PCP 07/30/17 02/17/18 Stevan Horn PA-C [address] [address] [place] [id number] PCP - Assigned PCP 02/18/18 05/01/18 Stevan Horn PA-C [address] [address] [id number] Assigned PCP 02/18/18 05/12/18 Shanon Gomez APRN RAW MATERIAL HANDLER [address] [address] [place] [id number] Assigned PCP 05/13/18 12/15/18 Stevan Horn PA-C [address] [address] [id number] Assigned PCP 12/16/18 10/10/20 Mariajose Jenkins APRN RAW MATERIAL HANDLER [address] [facility] [place] [address] Assigned OBGYN Provider 06/07/2012/10 Shanon Gomez APRN RAW MATERIAL HANDLER [address] [place] [address] Assigned PCP 10/11/20 11/19/23 documented as of this encounter
--- OUTSIDE RECORDS SUMMARY | 2024-12-21 16:30 | XMS_ITS | Encounter Summary ---
Author Organization [facility] Address [address] [place] [address] Care Team Providers Care Design Tech Name Role Phone Stacie Villareal MD Primary Care Provider Shanon Gomez APRN MANAGER SPEECH Unavailable + [phone] Stevan Horn PA-C Unavailable + Stevan Horn PA-C Unavailable + Shanon Gomez APRN MANAGER SPEECH Unavailable + Stevan Horn PA-C Unavailable + Mariajose Jenkins FILM MOUNTER MANAGER SPEECH Unavailable [phone] Shanon Gomez FILM MOUNTER MANAGER SPEECH Unavailable + [phone] Encounter Details Date Type Department Care Team (Late st Contact Info) Description 04/14/2017 MyC Medical Advice [address], [address] [place] [phone] Maryse Feldman Social History Tobacco Use Types Packs/Day Years Used Date Smoking Tobacco: Never Smokeless Tobacco: Never Alcohol Use Standard Drinks/Week Comments Yes 0 (1 standard drink = 0.6 oz pur e alcohol) Occasionally Comments No Sex and Gender Information Value Date Recorded Sex Assigned at Not on file Legal Sex Female 4:02 AM WEIGHING 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 Gender Identity Not on file Sexual [...] on filedocumented in this encounter Care Teams Design Tech Relationship Specialty Start Date End Date Stacie Villareal MD PCP - General Family Practice 12/28/10 09/03/24 Shanon Gomez APRN MANAGER SPEECH [address] [place] [address] PCP - Assigned PCP 07/30/17 02/17/18 Stevan Horn PA-C [address] [place] [address] PCP - Assigned PCP 02/18/18 05/01/18 Stevan Horn [place] [address] [place] [address] Assigned PCP 02/18/18 05/12/18 Shanon Gomez APRN MANAGER SPEECH [address] [place] [address] Assigned PCP 05/13/18 12/15/18 Stevan Horn PA-C [address] [place] [address] Assigned PCP 12/16/18 10/10/20 Mariajose Jenkins APRN MANAGER SPEECH [address] [place] [address] [address] Assigned OBGYN Provider 06/07/2012/10 Shanon Gomez APRN MANAGER SPEECH [address] [place] [address] Assigned PCP 10/11/20 11/19/23 documented as of this encounter
--- OUTSIDE RECORDS SUMMARY | 2024-12-21 16:30 | XMS_ITS | Encounter Summary ---
Author Organization [facility] Address [address] [place] [address] Care Team Providers Care Storage Battery Inspector Name Role Phone Dar Devi MD Primary Care Provider Stacie Gallagher MD Primary Care Provider Shanon Gomez PUMP HOUSE ENGINEER DIRECTOR OF OUTREACH Unavailable + Stevan Horn PA-C Unavailable + Stevan Horn PA-C Unavailable + Shanon Gomez PUMP HOUSE ENGINEER DIRECTOR OF OUTREACH Unavailable + Stevan Horn PA-C Unavailable + Mariajose Jenkins PUMP HOUSE ENGINEER DIRECTOR OF OUTREACH Unavailable [phone] Shanon Gomez PUMP HOUSE ENGINEER DIRECTOR OF OUTREACH Unavailable +[phone] Reason for Visit * Reason Onset Date Comments Refill Request 04/13/2010 Encounter Details Date Type Department Care Team (Late st Contact Info) Description 04/13/2010 MyC Refill [facility] [address] [place] [address] [place] [address] Dar Devi MD NO INFO AVAILABLE 09/20/22 Refill Request Social History Tobacco Use Types Packs/Day Years Used Date Smoking Tobacco: Never Alcohol Use Standard Drinks/Week Comments No 0 (1 standard drink = 0.6 oz pur e alcohol) none since Comments No Sex and Gender Information Value Date Recorded Sex Assigned at Not on file Legal Sex Female 4:02 AM REPAIRER AUTO CLOCKS Gender Identity Not on file Sexual Orientation Not on file 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 See [employer] message IRER AUT[employer]OCK[employer] * Telephone Encounter - Carlotta Avina - 04/13/2010 3:43 PM CST Please address the my chart message. Last pap 06/05. No future appts on file. Sent to md for authorization. Steve Avina RN IRER [employer] * Telephone Encounter - Carlotta Avina - 04/13/2010 3:42 PM CSTMessage from [employer]: Alejandra Cuadramilind would like a refill of the following medications: ORTHO TRI-CYCLEN (28) 0.035 MG OR TABS [Dar Devi MD] Preferred pharmacy: [facility] [place] Comment: [employer] documented in this encounter Plan of Treatment Not on file documented as of this encounter Visit Diagnoses Diagnosis Contraception- Primary Unspecified contraceptive management documented in this encounter Care Teams Storage Battery Inspector Relationship Specialty Start Date End Date Dar Devi MD PCP - General 04/10/03 12/27/10 Stacie Villareal MD PCP - General Family Practice 12/28/10 09/03/24 Shanon Gomez APRN DIRECTOR OF OUTREACH [address] [place] [address] PCP - Assigned PCP 07/30/17 02/17/18 Stevan Horn PA-C [address] [place] [address] PCP - Assigned PCP 02/18/18 05/01/18 Stevan Horn PA-C [address] [place] [address] Assigned PCP 02/18/18 05/12/18 Shanon Gomez APRN DIRECTOR OF OUTREACH [address] [place] [address] Assigned PCP 05/13/18 12/15/18 Stevan Horn PA-C [address] [place] [address] Assigned PCP 12/16/18 10/10/20 Mariajose Jenkins, PUMP HOUSE ENGINEER DIRECTOR OF OUTREACH [address] [place] [address] Assigned OBGYN Provider 06/07/2012/10 Shanon Gomez, ALISHA DIRECTOR OF OUTREACH [address] [place] [address] Assigned PCP 10/11/20 11/19/23 documented as of this encounter
[2024-12-21 16:34] VITALS: BP 127/83; PULSE 66; RESP 16; TEMP 37.2; O2SAT 97; BMI 29.3
--- NOTE | 2024-12-21 17:04 | ED_ITS ---
HPI - General Adult General Chief complaint: Skin/Abscess/Foreign Body Stated complaint: Cyst on Back, Pain and headache Time Seen by Provider: 12/21/24 16:30 Source: patient Mode of arrival: ambulatory Limitations: no limitations History of Present Illness HPI narrative: 44-year-old female coming in today complaining of an inflamed cyst on her back. Patient states she has been dealing with this for about 2 months. He became red and infected in October she was placed on antibiotics and had the cyst drained. The 2nd time it sounds like the felt that they had removed the entire cyst and put her on another round of antibiotics. The 3rd time she was placed on steroids when the swelling returned. She states that she noticed in the last 24 hours the cyst get painful, swollen and red again. No systemic symptoms Related Data Previous Rx's ?Medication ?Instructions ?Recorded estradiol 0.0375 mg/24 hr 1 patch transdermal 2XW #24 ea 09/18/24 semiweekly transdermal patch estradiol 0.1 mg/24 hr semiweekly 1 patch transdermal 2XW #24 patches 09/18/24 transdermal patch progesterone micronized 200 mg 200 mg PO QHS #90 caps 09/18/24 capsule cefadroxil 500 mg capsule 500 mg PO BID 7 days #14 cap s 12/21/24 Allergies Allergy/AdvReac Type Severity Reaction Status Date / Time No Known Drug Allergies Allergy Verified 12/21/24 16:34 Review of Systems Status of ROS: Reports: 10 or more systems reviewed and unremarkable except as noted in History and below Narrative: Patient states that she had headache yesterday which is not unusual for her. [facility] Medical History Edema of right lower extremity ?R60.0 - Localized edema (ICD-10) Migraine ?G43.909 - Migraine, unspecified, not intractable, without status migrainosus (ICD-10) Perimenopausal vasomotor symptoms ?N95.1 - Menopausal and female climacteric states (ICD-10) Bacterial vaginosis (02/10/23) ?N76.0 - Acute vaginitis (ICD-10) ?B96.89 - Other specified bacterial agents as the cause of diseases classified elsewhere (ICD-10) Surgical History H/O bilateral breast reduction surgery (~2018) ?Z98.890 - Other specified postprocedural states (ICD-10) History of left oophorectomy (~2009) ?Z90.721 - Acquired absence of ovaries, unilateral (ICD-10) Family History Father High blood pressure High cholesterol Alcohol dependence Depression Mother High cholesterol Alcohol dependence Depression Paternal Grandfather No problems noted. Social History Narrative: Cis-gender, heterosexual woman Relationship status: . 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 Alert and oriented. Answers questions appropriately. Mood and affect are appropriate. Thoughts are goal oriented and rational. No tangential or magical thinking noted. Patient speaks in full sentences without needing to catch her breath. HEENT: Normocephalic atraumatic. Extraocular muscles are intact. Conjunctivae are moist without any icterus noted. Moist mucous membranes. Back: Patient has an erythematous swollen tender area that is approximately 1 in from top to bottom and 2 in from left to right. The area is fluctuant. Const: Vital Signs, click to edit/add: Vital Signs - 24 hr 12/21/24 16:34 Temperature 99.0 F Pulse Rate [Pulse Oximeter] 66 Respiratory Rate 16 Blood Pressure [Ri ght Upper Arm] 127/83 Pulse Oximetry 97 Oxygen Delivery Me thod Room Air Course Course ED Course: Procedure: Incision and drainage. A small area over the area of most fluctuance was anesthetized with lidocaine with epinephrine and an 11 blade was used to make a small incision. At least 10 mL of luis pus drained. Q-tip was used to break up any loculations and another 3 mL of luis pus drained. The area is approximately an inch deep. Wound was packed with a significant amount of quarter-inch packing. Vital Signs Vital signs: Initial Vital Signs Temperature 99.0 F 12/21/24 16:34 Temperature Source Temporal Artery Scan 12/21/24 16:34 Pulse Rate 66 12/21/24 16:34 Respiratory Rate 16 12/21/24 16:34 Blood Pressure 127/83 12/21/24 16:34 Blood Pressure Mean 97 12/21/24 16:34 Blood Pressure Position Sitting 12/21/24 16:34 Pulse Oximetry 97 12/21/24 16:34 Oxygen Delivery Method Room Air 12/21/24 16:34 Vital Signs Temperature 99.0 F 12/21/24 16:34 Pulse Rate 66 12/21/24 16:34 Respiratory Rate 16 12/21/24 16:34 Blood Pressure 127/83 12/21/24 16:34 Pulse Oximetry 97 12/21/24 16:34 Oxygen Delivery Method Room Air 12/21/24 16:34 Temperature 99.0 F 12/21/24 16:34 Pulse Rate 66 12/21/24 16:34 Respiratory Rate 16 12/21/24 16:34 Blood Pressure 127/83 12/21/24 16:34 Pulse Oximetry 97 12/21/24 16:34 Oxygen Delivery Method Room Air 12/21/24 16:34 Medical Decision Making MDM Narrative Medical decision making narrative: 44-year-old female with a large cyst on her back leaving a large open space after drainage. Drainage was sent for wound culture. Patient is going to follow up in 48 hours in the clinic to have the area repacked. I do think that it is big enough that repacking will be necessary. I also recommend that she follow up with outpatient General surgery. Patient will be placed on cefadroxil. Discharge Plan Discharge Clinical Impression: Abscess Patient Disposition: Home, Self-Care Condition: Stable Additional Instructions: You should be seen in the clinic on Monday to have a your wound repacked. If you cannot get into the clinic on Monday, return to the emergency department. I also recommend that you follow-up with a general surgeon. Your primary care provider can refer you to 1 or you can see 1 of the general surgeons here at [facility]. Take all antibiotics as prescribed. Prescriptions: New cefadroxil 500 mg capsule 500 mg PO BID 7 Days Qty: 14 0RF No Action estradiol 0.1 mg/24 hr patch semiweekly 1 patch transdermal 2XW Qty: 24 4RF progesterone micronized 200 mg capsule 200 mg PO QHS Qty: 90 4RF estradiol 0.0375 mg/24 hr patch semiweekly 1 patch transdermal 2XW Qty: 24 4RF Follow Up/Referrals: Provider,Not a Local [Primary Care Provider, Family Practice] Stand Alone Forms: MyHealth Info Instructions
== END 2024-12-21 17:53 | disposition home or self-care (01) ==
LOC: ED 17:29
PROVIDERS: Emergency Provider Family Medicine
DX: L02.212 Cutaneous abscess of back [any part, except buttock and flank] (principal)
CPT/HCPCS: 10060; 87070; 99283; 99284

== ENCOUNTER 2025-02-03 12:44 | Outpatient (CLI) | payer OTHER, SELFPAY ==
--- NOTE | 2025-02-03 13:00 | CRLHL7_ITS ---
For Patients: As a result of the Century Cures Act, medical imaging exams and procedure reports are released immediately into your electronic medical record. You may view this report before your referring provider. If you have questions, please contact your health care provider. INDICATION: BILATERAL SCREENING MAMMOGRAM, ASYMPTOMATIC 45 Y/O FEMALE COMPARISON: REESTABLISH BASELINE TECHNIQUE: Digital mammogram in CC and MLO projections including computer-aided detection (CAD) and tomosynthesis. BREAST COMPOSITION: There are scattered areas of fibroglandular density. FINDINGS: No suspicious findings. ASSESSMENT: BI-RADS 1 Negative RECOMMENDATION: Annual screening mammogram. A lay language report of this examination will be provided to the patient. Dictated by: Vlad Galicia MD @ 02/06/2025 11:52:55 (Electronically Signed)
== END 2025-02-03 12:45 | disposition home or self-care (01) ==
LOC: MAMMO 12:45
PROVIDERS: PCP Family Medicine; Visit Provider Obstetrics & Gynecology
DX: Z12.31 Encounter for screening mammogram for malignant neoplasm of breast (principal)
CPT/HCPCS: 77063; 77067